=== PATIENT | male | born 1980 | race Caucasian/White ===

== ENCOUNTER 2016-07-06 11:45 | Emergency (ER) | payer OTHER ==
[~2016-07-06 11:45] MED LIST: BACTRIM DS TABL1 TA1 PO; FLOMAX0.4 M1 PO; INDOMETHACIN75 MG PO; LORTAB 5/500 TA1 TA1 PO; NO MEDICATIONS; PREDNISONE PO; VICODIN ES 7.51 EAC1 PO; ZOFRAN PO
== END 2016-07-06 12:37 | disposition home or self-care (01) ==
LOC: SED 11:45
DX: S39.012A Strain of muscle, fascia and tendon of lower back, initial encounter (principal); Z79.899 Other long term (current) drug therapy; X58.XXXA Exposure to other specified factors, initial encounter; Y92.89 Other specified places as the place of occurrence of the external cause
CPT/HCPCS: 96372; 99283; J2360